=== PATIENT | female | born 1960 | race Caucasian/White ===

== ENCOUNTER → 2021-02-11 | Outpatient (CLI) | payer MEDICARE, MEDICAID ==
[~2021-02-11] MED LIST: 00186-0372-20 IH; CENTANY AT2% TP; CHANTIX 1MG1 MG PO; CLARISPRAY9.9 ML NS; COZAAR 50MG50 MG/TAB PO; DESYREL 50MG50 MG PO; DOXYCYCLINE HY100 MG PO; FLEXERIL5 MG PO; KLOR-CON/EF25 MEQ PO; LEVOXYL0.025 MG PO; LIPITOR 40MG TA40 MG PO; NEURONTIN300 MG/CAP PO; PROAIR RES117 MCG/Ac IH; RT SPIRIVA18 MCG IH; VOLTAREN GEL 1%1 TU TP; VRAYLAR1.5 MG PO
== END ==
LOC: MC.RAD 08:48
DX: N63.10 Unspecified lump in the right breast, unspecified quadrant (principal)

== ENCOUNTER 2021-02-15 13:09 | Emergency (ER) | payer MEDICARE, MEDICAID ==
[~2021-02-15] VITALS: Ht 182.9 cm; Wt 96.8 kg
[2021-02-15 13:42] VITALS: TEMP 98.5
[2021-02-15] MEDS ORDERED: PROAIR RES117 MCG/Ac IH (13:57)
[2021-02-15] MEDS ORDERED: 00186-0372-20 IH (13:58)
[2021-02-15] MEDS ORDERED: VRAYLAR1.5 MG PO (13:58)
[2021-02-15] MEDS ORDERED: LIPITOR 40MG TA40 MG PO (13:58)
[2021-02-15] MEDS ORDERED: VOLTAREN GEL 1%1 TU TP (13:59)
[2021-02-15] MEDS ORDERED: DOXYCYCLINE HY100 MG PO (13:59)
[2021-02-15] MEDS ORDERED: FLEXERIL5 MG PO (13:59)
[2021-02-15] MEDS ORDERED: CLARISPRAY9.9 ML NS (14:00)
[2021-02-15] MEDS ORDERED: NEURONTIN300 MG/CAP PO (14:02)
[2021-02-15] MEDS ORDERED: LEVOXYL0.025 MG PO (14:08)
[2021-02-15] MEDS ORDERED: COZAAR 50MG50 MG/TAB PO (14:09)
[2021-02-15] MEDS ORDERED: KLOR-CON/EF25 MEQ PO (14:10)
[2021-02-15] MEDS ORDERED: CENTANY AT2% TP (14:10)
[2021-02-15] MEDS ORDERED: DESYREL 50MG50 MG PO (14:11)
[2021-02-15] MEDS ORDERED: CHANTIX 1MG1 MG PO (14:11)
[2021-02-15] MEDS ORDERED: RT SPIRIVA18 MCG IH (14:11)
[2021-02-15 14:19] LABS: BASO % 0.6 % (0.0-2.0); EOS # 0.2 (0.0-0.7); EOS % 2.7 % (0-4.0); GRAN # 3.3 (1.4-6.5); GRAN % 53.8 % (42.2-75.2); HEMATOCRIT 41.5 % (37.0-47.0); HEMOGLOBIN 13.9 g/dl (12.5-16.0); LYMPH # 2.1 (1.2-3.4); LYMPH % 34.5 % (20.0-51.0); MEAN CELL VOLUME 84 fl (80.0-100.0); MEAN CORPUSCULAR HEMOGLOBIN 28 pg (27.0-31.0); MEAN CORPUSCULAR HGB CONC 34 g/dl (33.0-37.0); MEAN PLATELET VOLUME 9.8 fl (7.4-10.4); MONO # 0.5 (0.1-0.6); MONO % 8.1 % (1.7-9.3); PLATELET COUNT 198 K/mm3 (130-400); RED BLOOD COUNT 4.93 M/mm3 (4.10-5.30); REDCELL DISTRIBUTION WIDTH-CV 14.8 % (11.5-14.5)
[2021-02-15 14:32] LABS: ANION GAP 2 mmol/L (7-16); BLOOD UREA NITROGEN 7 mg/dL (7-17); C-REACTIVE PROTEIN < 0.5 mg/dL (0.0-0.9); CALCIUM 9.4 mg/dL (8.4-10.2); CARBON DIOXIDE 28 mmol/L (22-30); CHLORIDE 109 mmol/L (98-107); CREATININE, serum 0.68 (0.52-1.25); GLUCOSE 105 mg/dL (74-106); POTASSIUM 3.4 mmol/L (3.4-5.0); SODIUM 139 mmol/L (137-145)
[2021-02-15 14:47] LABS: ERYTHROCYTE SEDIMENTATION RATE 7 mm/hr (0-30)
[2021-02-15 15:05] VITALS: BP 126/80; PULSE 83
== END 2021-02-15 15:13 | disposition home or self-care (01) ==
LOC: COL.ER 13:09
PROVIDERS: Emergency Medicine
DX: M25.562 Pain in left knee (principal); J44.9 Chronic obstructive pulmonary disease, unspecified; I10 Essential (primary) hypertension; F17.210 Nicotine dependence, cigarettes, uncomplicated; Z79.51 Long term (current) use of inhaled steroids; Z88.6 Allergy status to analgesic agent; Z79.899 Other long term (current) drug therapy
CPT/HCPCS: J1885

== ENCOUNTER → 2021-03-01 | Outpatient (CLI) | payer MEDICARE, MEDICAID | LOC: MC.RAD 09:58 | DX: D24.1 Benign neoplasm of right breast (principal) ==

== ENCOUNTER 2022-04-06 14:17 | Emergency (ER) | payer MEDICARE, MEDICAID ==
[~2022-04-06] VITALS: Ht 182.9 cm; Wt 94.1 kg
[2022-04-06 14:37] VITALS: TEMP 97.7
[2022-04-06] MEDS ORDERED: NORCO 325 MG-51 TAB PO (16:16)
[2022-04-06 16:43] VITALS: BP 120/73; PULSE 78
== END 2022-04-06 16:43 | disposition home or self-care (01) ==
LOC: COL.ER 14:17
DX: M54.50 Low back pain, unspecified (principal); F17.210 Nicotine dependence, cigarettes, uncomplicated; Z88.5 Allergy status to narcotic agent

== ENCOUNTER 2024-02-15 21:06 | Emergency (ER) | payer MEDICARE, MEDICAID ==
[~2024-02-15] VITALS: Ht 182.9 cm; Wt 89.5 kg
[~2024-02-15 21:06] MED LIST changes: +ASPIRIN 81M81 MG/TA2 PO; +AUSTEDO9 MG PO; +CEPHALEXIN500 M1 PO; +DESYREL DIVIDO300 MG PO; +DOXYCYCLINE 10100 MG PO; +IPRATROPIUM BROM3 M1 IH; +LATUDA40 MG PO; +LEVAQUIN 750MG750 M1 PO; +MOBIC15 MG PO; +NAPROSYN500 MG PO; +NICODERM C21 MG/PATC TD; +NORCO 325 MG-51 TAB PO; +NORVASC2.5 MG PO; +PREDNISONE10 MG PO; +PREDNISONE50 MG PO; +PRIL40 PO; +TAMIFLU 75MG75 MG PO; +TIROSINT137 MC1; +UROCIT-K15 MEQ PO; +ZITHROMAX Z PA250 MG PO; +ZOFRAN 4MG T4 MG/TAB PO
[2024-02-15 21:16] VITALS: TEMP 98.4
[2024-02-15] MEDS ORDERED: Morphine 4 MG/ML VIAL IV ONE (22:45)
[2024-02-15 22:54] LABS: BASO # 0.1 K/mm3 (0.0-0.2); BASO % 0.8 % (0.0-2.0); EOS # 0.2 K/mm3 (0.0-0.7); EOS % 3.2 % (0.0-4.0); GRAN # 3.8 K/mm3 (1.4-6.5); GRAN % 54.1 % (42.2-75.2); HEMATOCRIT 37.7 % (37.0-47.0); HEMOGLOBIN 12.4 g/dl (12.5-16.0); LYMPH # 2.4 K/mm3 (1.2-3.4); LYMPH % 33.9 % (20.0-51.0); MEAN CELL VOLUME 84 fl (80.0-100.0); MEAN CORPUSCULAR HEMOGLOBIN 28 pg (27-31); MEAN CORPUSCULAR HGB CONC 33 g/dl (33.0-37.0); MEAN PLATELET VOLUME 10.8 fl (7.4-10.4); MONO # 0.6 K/mm3 (0.1-0.6); MONO % 7.9 % (1.7-9.3); PLATELET COUNT 168 K/mm3 (130-400); RED BLOOD COUNT 4.47 M/mm3 (4.10-5.30); REDCELL DISTRIBUTION WIDTH-CV 14.2 % (11.5-14.5)
[2024-02-15 23:12] LABS: ALANINE AMINOTRANSFERASE 26 U/L (0-55); ALBUMIN 3.8 g/dL (3.4-4.8); ALKALINE PHOSPHATASE 112 U/L (40-150); ANION GAP 9 mmol/L (7-16); AST,SGOT 23 U/L (5-34); BILIRUBIN,TOTAL 0.4 mg/dL (0.2-1.2); BLOOD UREA NITROGEN 14 mg/dL (10-20); CHLORIDE 109 mEq/L (98-107); GLUCOSE 98 mg/dL (70-99); POTASSIUM 3.6 mEq/L (3.5-4.5); SODIUM 141 mEq/L (136-145); TOTAL PROTEIN 6.7 g/dl (6.2-8.1)
[2024-02-15 23:20] LABS: TROPONIN-I < 0.010 ng/mL (0.00-0.033)
[2024-02-15] MEDS ORDERED: Ketorolac 15 MG/ML VIAL IV ONE (23:45)
[2024-02-15] MEDS ORDERED: Ondansetron 4 MG/2 ML VIAL IV ONE (23:45)
[2024-02-16 00:02] LABS: COLLECTION METHOD CLEAN CATCH
[2024-02-16] MEDS ORDERED: NS 50 ML IV SCH (00:03)
[2024-02-16] MEDS ORDERED: Iohexol 350 - 100 ML VIAL IV ONE (00:03)
[2024-02-16 00:45] LABS: PH 6.5 (5.0-8.5); URINE APPEARANCE CLEAR (CLEAR/HAZY); URINE BLOOD 2+ (NEGATIVE); URINE COLOR YELLOW (YELLOW); URINE GLUCOSE NEGATIVE (NEGATIVE); URINE KETONE NEGATIVE (NEGATIVE); URINE NITRATE NEGATIVE (NEGATIVE); URINE PROTEIN(semi-quant) NEGATIVE (NEGATIVE)
[2024-02-16] MEDS ORDERED: FLEXERIL 1010 MG/TAB PO (01:29)
[2024-02-16] MEDS ORDERED: Home oxyCODONE/Acetaminophen 5/325 MG #4 TAB/PACK PO ONE (01:30)
[2024-02-16 01:49] VITALS: BP 1336/74; PULSE 82
== END 2024-02-16 01:50 | disposition home or self-care (01) ==
LOC: COL.ER 21:06
PROVIDERS: Nurse Practitioner
DX: M54.6 Pain in thoracic spine (principal)
CPT/HCPCS: Q9967

== ENCOUNTER → 2024-05-13 | Outpatient (CLI) | payer MEDICARE ==
[~2024-05-13] MED LIST changes: +AUSTEDO PO; +BREZTRI AEROS10.7 GM IH; +ELDERBERRY PO; +FLEXERIL 1010 MG/TAB PO; +FLONASEALLERGY NS; +K-DUR20 MEQ PO; +LATUDA60 MG PO; +LIPITOR 80MG80 MG PO; +MULTI VITAMINS1 TAB PO; +SYNTHROID0.112 MG/T PO; +VITAMIN D PO
== END ==
LOC: COL.RAD 07:30
DX: C50.411 Malignant neoplasm of upper-outer quadrant of right female breast (principal); R59.9 Enlarged lymph nodes, unspecified
CPT/HCPCS: A9520-JZ

== ENCOUNTER 2024-06-12 18:50 | Emergency (ER) | payer OTHER, MEDICAID ==
[~2024-06-12] VITALS: Ht 182.9 cm; Wt 84.5 kg
[2024-06-12 19:04] VITALS: TEMP 98.4
[2024-06-12] MEDS ORDERED: NS 1,000 ML IV ONE (19:30)
[2024-06-12 20:14] LABS: COLLECTION METHOD CLEAN CATCH
[2024-06-12 20:17] LABS: BASO # 0.1 K/mm3 (0.0-0.2); BASO % 0.8 % (0.0-2.0); EOS # 0.4 K/mm3 (0.0-0.7); EOS % 5.2 % (0.0-4.0); GRAN # 3.2 K/mm3 (1.4-6.5); GRAN % 41.9 % (42.2-75.2); HEMATOCRIT 44.6 % (37.0-47.0); HEMOGLOBIN 15.2 g/dl (12.5-16.0); LYMPH # 3.4 K/mm3 (1.2-3.4); LYMPH % 44.5 % (20.0-51.0); MEAN CELL VOLUME 84 fl (80.0-100.0); MEAN CORPUSCULAR HEMOGLOBIN 29 pg (27-31); MEAN CORPUSCULAR HGB CONC 34 g/dl (33.0-37.0); MEAN PLATELET VOLUME 11.1 fl (7.4-10.4); MONO # 0.6 K/mm3 (0.1-0.6); MONO % 7.5 % (1.7-9.3); PLATELET COUNT 204 K/mm3 (130-400); RED BLOOD COUNT 5.29 M/mm3 (4.10-5.30); REDCELL DISTRIBUTION WIDTH-CV 13.9 % (11.5-14.5)
[2024-06-12 20:23] LABS: URINE APPEARANCE CLEAR (CLEAR/HAZY); URINE BLOOD TRACE (NEGATIVE); URINE COLOR YELLOW (YELLOW); URINE GLUCOSE NEGATIVE (NEGATIVE); URINE KETONE NEGATIVE (NEGATIVE); URINE NITRATE NEGATIVE (NEGATIVE); URINE PROTEIN(semi-quant) NEGATIVE (NEGATIVE)
[2024-06-12 20:35] LABS: ALBUMIN 4.3 g/dL (3.4-4.8); BILIRUBIN,TOTAL 0.4 mg/dL (0.2-1.2); CALCIUM 9.9 mg/dL (8.4-10.2); CREATININE, serum 0.82 mg/dL (0.57-1.11); POTASSIUM 3.3 mEq/L (3.5-4.5); TOTAL PROTEIN 7.4 g/dl (6.2-8.1)
[2024-06-12] MEDS ORDERED: Iohexol 300 - 100 ML VIAL IV ONE (21:30)
[2024-06-12] MEDS ORDERED: NS 50 ML IV SCH (21:31)
[2024-06-12 22:39] VITALS: BP 106/72; PULSE 70
== END 2024-06-12 22:55 | disposition home or self-care (01) ==
LOC: COL.ER 18:50
PROVIDERS: Nurse Practitioner
DX: R10.32 Left lower quadrant pain (principal); Z85.3 Personal history of malignant neoplasm of breast; F17.200 Nicotine dependence, unspecified, uncomplicated
CPT/HCPCS: J7030; Q9967